=== PATIENT | male | born 1995 ===

== ENCOUNTER 2018-06-18 21:07 | Emergency (ER) | payer SELFPAY ==
[2018-06-18 21:16] VITALS: BP 142/73
--- NOTE | 2018-06-18 21:40 | ER Document Report ---
ED General - General Chief Complaint: Productive Cough Stated Complaint: COUGH Time Seen by Provider: 06/18/18 21:40 Notes: Patient is a 23-year-old male with asthma that presents to the emergency department for chief complaint of cough. Patient states that he was at a physician's office today doing a pulmonary function test, for a job that he has , and he coughed up a scant amount of blood, so they advised him to come to the emergency department. He states his been having a cough since yesterday morning , with some production of yellow sputum. He has been using his inhaler to help with his symptoms because he does have asthma. He denies noting any recent fevers, chills, night sweats, chest pain, shortness of breath, nausea, vomiting or abdominal pain that was associated with this. Past Medical History: Asthma Past Surgical History: Denies surgical history Social History: Denies tobacco use, but states that he is around many people that smoke, admits to rare alcohol use, denies illicit drug use Family History: Reviewed and noncontributory for presenting illness Allergies: Reviewed, see documented allergy list. REVIEW OF SYSTEMS: Unless otherwise stated in this report the patient's positive and negative responses for review of systems for constitutional, eyes, ENT, cardiovascular, respiratory, gastrointestinal, neurological, genitourinary, musculoskeletal, and integumentary systems and related systems to the presenting problem are either as stated in the HPI or were not pertinent or were negative for the symptoms and/or complaints related to the presenting medical problem. PHYSICAL EXAMINATION: Vital signs reviewed, nursing noted reviewed. GENERAL: Well-appearing, well-nourished and in no acute distress. HEAD: Atraumatic, normocephalic. EYES: Eyes appear normal, extraocular movements intact, sclera anicteric, conjunctiva are normal. ENT: nares patent, oropharynx clear without exudates. Moist mucous membranes. NECK: Normal range of motion, supple without lymphadenopathy LUNGS: Breath sounds clear to auscultation bilaterally and equal. No wheezes rales or rhonchi. HEART: Regular rate and rhythm without murmurs ABDOMEN: Soft, nontender, normoactive bowel sounds. No rebound, guarding, or rigidity. No masses appreciated. EXTREMITIES: Nontender, good range of motion, no pitting or edema. NEUROLOGICAL: No focal neurological deficits. Moves all extremities spontaneously Motor and sensory grossly intact on exam. PSYCH: Normal mood, normal affect. SKIN: Warm, Dry, normal turgor, no rashes or lesions noted on exposed skin TRAVEL OUTSIDE OF THE [place] IN LAST 30 DAYS: No Past Medical History - Social History Smoking Status: Never Smoker Chew tobacco use (# tins/day): No Frequency of alcohol use: Occasional Drug Abuse: None Family History: Reviewed & Not Pertinent Patient has suicidal ideation: No Patient has homicidal ideation: No Pulmonary Medical History: Reports: Hx Asthma Renal/ Medical History: Denies: Hx Peritoneal Dialysis Physical Exam - Vital signs Vitals: Temp Pulse Resp BP Pulse Ox 98.8 F 68 14 142/73 H 99 06/18/18 21:15 06/18/18 21:15 06/18/18 21:15 06/18/18 21:15 06/18/18 21:15 Course - Re-evaluation Re-evalutation: Patient seen and examined vital signs reviewed. Imaging were ordered as appropriate for the patient's presenting symptoms and complaint, with consideration of any critical or life threatening conditions that may be associated with their obtained history and exam as noted above. Patient was treated with albuterol Results were reviewed when available and demonstrated negative for acute infiltrate, or other acute cardiopulmonary pathology. The patient was re-evaluated and was stable, improved Evaluation was most consistent with acute bronchitis, with asthma Results were discussed with the patient at this point, after careful consideration I feel that that patient can be discharged from the emergency department, the patient was educated treatments and reasons to return to the emergency department based on their presumed diagnosis as noted above, they were advised to followup with a primary care physician in 2-3 days. Patient was agreeable to plan of care. *Note is created using voice recognition software and may contain spelling, syntax or grammatical errors. Chest X-Ray 06/18/18 00:00 IMPRESSION: There is no acute pleural-parenchymal process seen in the imaged lung mota. Place of interpretation: [facility]. - Vital Signs Vital signs: Temp Pulse Resp BP Pulse Ox 98.8 F 68 14 142/73 H 99 06/18/18 21:15 06/18/18 21:15 06/18/18 21:15 06/18/18 21:15 06/18/18 21:15 Discharge - Discharge Clinical Impression: Acute bronchitis Qualifiers: Bronchitis organism: unspecified organism Qualified Code(s): J20.9 - Acute bronchitis, unspecified Condition: Stable Disposition: HOME, SELF-CARE Instructions: Bronchitis ([facility]) Additional Instructions: Please return to the emergency department if you have any worsening, or concern of your symptoms. Please return to the emergency department if you develop chest pain, difficulty breathing, severe abdominal pain, or ongoing vomiting. Please follow-up with your primary care physician in 2-3 days and any other recommended physicians. If prescribed, take all medications as directed. If you have any questions or concerns do not hesitate to return the emergency department for evaluation. Prescriptions: Prednisone [Deltasone 20 mg Tablet] 2 tab PO DAILY 5 Days #10 tablet Referrals: DAR PENG MD [ACTIVE STAFF] - Follow up in 3-5 days (or your primary care. )
[2018-06-18] MEDS ORDERED: ALBUTEROL SULFATE 0.083% NEB 2.5 MG/3 ML AMPUL NEB ONE (21:49)
--- NOTE | 2018-06-18 22:08 | RADIOLOGY REPORT (SQ) ---
PROCEDURE: CHEST TWO VIEW CLINICAL HISTORY: cough INDICATION: Same as above COMPARISON: None TECHNIQUE: The current study was done on 06/18/2018 at 9:54 PM PA and and lateral chest radiographs were obtained. FINDINGS: The lung mota are well inflated. There are no discrete airspace infiltrates, pneumothoraces or pleural effusions. The pulmonary vascularity is normal The cardiomediastinal silhouette is unremarkable for patient's age and sex. IMPRESSION: There is no acute pleural-parenchymal process seen in the imaged lung mota. Place of interpretation: Teler[facility]iology.
[2018-06-18] MEDS ORDERED: HYDROCODONE BIT/HOMATROPINE SYRUP 5 ML UDCUP PO ONE (22:39)
== END 2018-06-18 22:33 | disposition home or self-care (01) ==
LOC: ER 21:07
DX: J20.9 Acute bronchitis, unspecified (principal); J45.909 Unspecified asthma, uncomplicated; R04.2 Hemoptysis
CPT/HCPCS: 71046; 94640; 99283; J3490